=== PATIENT | male | born 2000 | race African-American/Black ===

== ENCOUNTER 2020-04-02 13:05 | Emergency (ER) | payer OTHER, SELFPAY ==
[2020-04-02 13:15] VITALS: BP 120/67; PULSE 58; RESP 16; TEMP 36.8; O2SAT 99
--- NOTE | 2020-04-02 13:18 | ED_ITS ---
HPI - Male Genitourinary General Chief complaint: Urogenital-Male Stated complaint: Urogenital-male Source: patient and RN notes reviewed Mode of arrival: ambulatory Limitations: no limitations History of Present Illness HPI Narrative: The patient, previously mostly healthy, presents for STD check. Patient was informed by his significant other that she was positive for chlamydia, which he has had before. Last intercourse last week;No fever, frequency/urgency/dysuria, rash, lumps D/C so he is asymptomatic. Related Data Allergies Allergy/AdvReac Type Severity Reaction Status Date / Time erythromycin base Allergy Unknown Verified 06/13/19 16:08 Review of Systems Review of Systems: Narrative: General/Constitutional: No weight loss,fever Eyes: N0: Redness,discharge Ears/Nose/Throat: No: Epistaxis,ear discharge Respiratory: Denies: Hemoptysis Gastrointestinal: No Vomiting, Bleeding-rectal Skin: No Lumps, eruption Neurologic: No Focal Weakness,Sz Hematologic: Denies: Petechiae/Purpura Psychiatric: No: Suicida ideationl All Other Systems: Reviewed and Negative [facility] Social History Social History Smoking status: Never smoker Second hand tobacco smoke exposure: Yes Alcohol intake: never Comments At time of signature, agree with nursing past medical, surgical, social and family history. There is no relevant family history pertinent to the presenting complaint Exam Narrative: Exam Narrative: General Appearance: Well appearing, Conjunctiva clear Ears: External ear normal Nose: Normal nose Mouth/Throat: Normal appearing, Supple Respiratory: Airway patent, No respiratory distress Abdomen: Soft, Non-tender, bilateral descended testicles, circumcised phallus, no inguinal hernia Musculoskeletal: Full ROM Skin: Warm, Dry Neurological: A&O x3, Normal affect Course Vital Signs Vital signs: Vital Signs Temperature 98.3 F 04/02/20 13:15 Pulse Rate 58 L 04/02/20 13:15 Respiratory Rate 16 04/02/20 13:15 Blood Pressure 120/67 04/02/20 13:15 Pulse Oximetry 99 04/02/20 13:15 Temperature 98.3 F 04/02/20 13:15 Pulse Rate 58 L 04/02/20 13:15 Respiratory Rate 16 04/02/20 13:15 Blood Pressure 120/67 04/02/20 13:15 Pulse Oximetry 99 04/02/20 13:15 MDM - Male Genitourinary Lab Data Labs: Urine Characteristics Clear Discharge Plan Discharge Clinical Impression: Exposure to sexually transmitted disease (STD) Patient Disposition: Home, Self-Care Condition: Stable Instructions: Antibiotic Form, Chlamydia (ED) Prescriptions: New doxycycline monohydrate 100 mg capsule 100 mg PO BID Qty: 20 RF: 0 metronidazole [Flagyl] 500 mg tablet 500 mg PO Q12H Qty: 14 RF: 0 Interventions: Discharge Disposition Last Done: 04/02/20 13:42 Follow-up/Referrals: Marshall Hurst DO [Primary Care Provider] -
== END 2020-04-02 13:42 | disposition home or self-care (01) ==
PROVIDERS: Emergency Provider Emergency Medicine; PCP Internal Medicine
DX: Z20.2 Contact with and (suspected) exposure to infections with a predominantly sexual mode of transmission (principal)
CPT/HCPCS: 87491; 87591; 99213; G0463